=== PATIENT | female | born 1995 | race Caucasian/White ===

== ENCOUNTER 2017-03-19 16:56 | Emergency (ER) | payer OTHER, SELFPAY ==
[~2017-03-19] VITALS: Ht 149.9 cm; Wt 48.6 kg
[2017-03-19] MEDS ORDERED: ALBUTEROL SULFATE 2.5 MG/0.5 ML INH NEB SOLN NEB ONE (19:00)
[2017-03-19] MEDS ORDERED: methylPREDNISolone INJ 125 MG/2 ML VIAL (J2930) IV ONE (19:00)
[2017-03-19 19:11] LABS: BASO % 0.4 % (0.0-1.0); EOS # 0.3 10^3/uL (0.0-0.50); IMMATURE GRANULOCYTE % 0.4 % (0-0); LYMPH # 2.2 10^3/uL (1.5-6.5); LYMPH % 28.3 % (24.0-44.0); MEAN CORPUSCULAR HGB CONC 32.6 g/dl (32.0-36.5); MEAN CORPUSCULAR VOLUME 88.8 fl (80.0-96.0); MONO # 0.5 10^3/uL (0.0-0.8); MONO % 6.1 % (0.0-5.0); NEUTROPHILS # 4.7 10^3/uL (1.8-7.7); NEUTROPHILS % 60.8 % (36.0-66.0); PLATELET COUNT, AUTOMATED 300 10^3/uL (150-450); RED CELL DISTRIBUTION WIDTH 12.9 % (11.5-14.5); WHITE BLOOD COUNT 7.7 10^3/uL (4.0-10.0)
[2017-03-19 19:26] LABS: ANION GAP 6 MEQ/L (8-16); BLOOD UREA NITROGEN 15 MG/DL (7-18); CALCIUM LEVEL 9.3 MG/DL (8.5-10.1); CARBON DIOXIDE LEVEL 28 MEQ/L (21-32); CHLORIDE LEVEL 108 MEQ/L (98-107); GLOMERULAR FILTRATION RATE > 60.0 (>60); GLUCOSE, FASTING 88 MG/DL (70-105); POTASSIUM SERUM 4.2 MEQ/L (3.5-5.1); SODIUM LEVEL 142 MEQ/L (136-145)
--- NOTE | 2017-03-19 19:36 | REP ---
Chest x-ray: Two views. History: Shortness of breath . Comparison study: December 13, 2009 . Findings: The lungs are well inflated and free of infiltrate. The pleural angles are sharp. The heart size is normal. Pulmonary vasculature is not increased. No significant bony abnormality is seen. Impression: Negative chest x-ray. Signed by Boubacar Rey MD 03/19/2017 07:28 P
[2017-03-19] MEDS ORDERED: ALBUTEROL 90 MCG/ACT 8GM HFA INHALER INH ONE (20:30)
[2017-03-19 20:31] VITALS: BP 104/66
--- NOTE | 2017-03-20 09:19 | ECGEPIP ---
Stationary ECG Study [facility] - ED Test Date: 2017-03-19 Pat Name: MIRYAM DOZIER Department: Room: - Gender: F Job Hand: manisha : 1995 Requested By: Dusty Callaway Order Number: [id number] Reading MD: Brandy Arnold Measurements Intervals [place] Rate: 71 P: 67 [place]: 119 QRS: 36 QRSD: 72 T: 38 QT: 356 QTc: 388 Interpretive Statements SINUS RHYTHM WITH SHORT [place] INTERVAL NO PRIOR FOR COMPARISON Electronically Signed On 03-20-2017 9:19:18 EDT by Brandy Arnold
== END 2017-03-19 20:53 | disposition home or self-care (01) ==
LOC: M ED 16:56
DX: R06.02 Shortness of breath (principal); Z72.0 Tobacco use
CPT/HCPCS: 71020; 80048; 85025; 85379; 93005; 94640; 96374; 99284; J2930

== ENCOUNTER 2017-04-01 03:39 | Inpatient (IN) | payer SELFPAY ==
[~2017-04-01] VITALS: Ht 149.9 cm; Wt 48.6 kg
[2017-04-01 04:23] LABS: MEAN CORPUSCULAR HEMOGLOBIN 29.2 pg (27.0-33.0); MEAN CORPUSCULAR HGB CONC 34.1 g/dl (32.0-36.5); MEAN CORPUSCULAR VOLUME 85.4 fl (80.0-96.0); RED CELL DISTRIBUTION WIDTH 12.4 % (11.5-14.5); WHITE BLOOD COUNT 9.2 10^3/uL (4.0-10.0)
[2017-04-01 04:39] LABS: CONTROL LINE HCG INT CTR LINE PRESENT
[2017-04-01 04:44] LABS: METHADONE URINE NEGATIVE (NEGATIVE)
[2017-04-01 04:54] LABS: ALBUMIN 3.7 GM/DL (3.2-5.2); ALBUMIN/GLOBULIN RATIO 0.95 (1.00-1.93); ALKALINE PHOSPHATASE 63 U/L (45-117); ALT/SGPT 19 U/L (12-78); ANION GAP 11 MEQ/L (8-16); AST/SGOT 11 U/L (15-37); BILIRUBIN,DIRECT 0.1 MG/DL (0.0-0.2); BILIRUBIN,TOTAL 0.4 MG/DL (0.2-1.0); BLOOD UREA NITROGEN 7 MG/DL (7-18); CALCIUM LEVEL 8.8 MG/DL (8.5-10.1); CARBON DIOXIDE LEVEL 21 MEQ/L (21-32); CHLORIDE LEVEL 110 MEQ/L (98-107); GLOMERULAR FILTRATION RATE > 60.0 (>60); GLUCOSE, FASTING 79 MG/DL (70-105); SODIUM LEVEL 142 MEQ/L (136-145); TOTAL PROTEIN 7.6 GM/DL (6.4-8.2)
[2017-04-01] MEDS ORDERED: MOM 30ML SUSPENSION UDC PO PRN (11:15)
[2017-04-01] MEDS ORDERED: ACETAMINOPHEN TAB 650MG DOSE (2X325MG) PO PRN (11:15)
[2017-04-01] MEDS ORDERED: MAALOX 30 ML SUSP *UDC PO PRN (11:15)
[2017-04-01 12:45] VITALS: BP 107/57
[2017-04-01] MEDS: FLUoxetine 20 MG CAP PO SCH (14:13)
[2017-04-01] MEDS: NICOTINE 21MG/24HR 1 EA TRANSDERMAL TD SCH (14:56)
[2017-04-01 18:00] VITALS: BP 119/63
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
[2017-04-01] MEDS: traZODone 50 MG TAB PO PRN (21:03)
[2017-04-01] MEDS: AUGMENTIN 875 MG TAB PO SCH (23:09)
[2017-04-01] MEDS: LACTOBACILLUS ACIDOPHILUS CAP (BACID) PO SCH (23:09)
--- NOTE | 2017-04-02 04:05 | HPE ---
DATE OF ADMISSION: 04/01/2017 HISTORY OF PRESENT ILLNESS: Please refer to psychiatric history and evaluation for further details on this admission. This examination and history is intended for medical issues, which may need treatment, followup or consult on this 22-year-old female. ALLERGIES: No known allergies. PRIMARY CARE PROVIDER: None currently. SOCIAL HISTORY: She is single. She has a 6-year-old daughter. Ethyl alcohol (EtOH) once a month if that. Smokes one-half pack of cigarettes per day. Recreational drug use: None. PAST MEDICAL HISTORY: She was recently treated with asthmatic bronchitis. She still has a cough and wheezing. No retraction. PAST SURGICAL HISTORY: Negative. HOME MEDICATIONS: Negative. LABORATORY STUDIES: CBC normal. Sodium 142, potassium 3.0, chloride 110, CO2 21. EtOH was 0.199. REVIEW OF SYSTEMS: 10-system review was done. Patient was complaining of chest congestion and inability to expectorate. Acute exacerbation of chronic obstructive pulmonary disease (COPD), bronchitis, rule out pneumonia. PHYSICAL EXAMINATION: Vital signs stable. Patient is alert and oriented times three. Pupils equal and react to light. Extraocular muscles intact. Cornea and sclerae clear. Conjunctivae were normal. No facial asymmetry. Pharynx, tongue and gums pink and moist. Tongue is midline. Neck is supple without lymphadenopathy. No thyromegaly, no goiter. carotids 2+ without bruit. Chest decreased breath sounds, scattered expiratory wheeze, no retraction. Heart is regular. Abdomen is benign. Bowel sounds positive. Genitourinary/rectal: Not done. Extremities: No cyanosis, clubbing or edema. Peripheral pulses equal and palpable bilaterally. Skin is warm and dry. IMPRESSION/PLAN: 1. Acute exacerbation of chronic obstructive pulmonary disease (COPD). Probiotic one by mouth twice a day. Augmentin 875 by mouth twice a day times 10 days, take with food. Prednisone taper. Increase fluids by mouth. Sputum for culture and sensitivity (C and S). 2. Psychiatric plan per psychiatry.
[2017-04-02 06:32] VITALS: BP 104/59
[2017-04-02 07:06] LABS: ANION GAP 8 MEQ/L (8-16); BLOOD UREA NITROGEN 14 MG/DL (7-18); CALCIUM LEVEL 9.1 MG/DL (8.5-10.1); CARBON DIOXIDE LEVEL 23 MEQ/L (21-32); CHLORIDE LEVEL 107 MEQ/L (98-107); CREATININE FOR GFR 0.67 MG/DL (0.55-1.02); GLOMERULAR FILTRATION RATE > 60.0 (>60); GLUCOSE, FASTING 77 MG/DL (70-105); POTASSIUM SERUM 3.9 MEQ/L (3.5-5.1); SODIUM LEVEL 138 MEQ/L (136-145)
[2017-04-02] MEDS: FLUoxetine 20 MG CAP PO SCH (08:14)
[2017-04-02] MEDS: LACTOBACILLUS ACIDOPHILUS CAP (BACID) PO SCH ×2 (08:14→21:01)
[2017-04-02] MEDS: predniSONE 1 MG TAB PO SCH (08:14)
[2017-04-02] MEDS: NICOTINE 21MG/24HR 1 EA TRANSDERMAL TD SCH (08:14)
[2017-04-02] MEDS: AUGMENTIN 875 MG TAB PO SCH ×2 (08:14→21:02)
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
[2017-04-02 18:00] VITALS: BP 100/63
[2017-04-02] MEDS: traZODone 50 MG TAB PO PRN (21:02)
[2017-04-03 06:36] VITALS: BP 107/64
[2017-04-03] MEDS: LACTOBACILLUS ACIDOPHILUS CAP (BACID) PO SCH ×2 (08:46→20:35)
[2017-04-03] MEDS: AUGMENTIN 875 MG TAB PO SCH ×2 (08:46→20:35)
[2017-04-03] MEDS: FLUoxetine 20 MG CAP PO SCH (08:46)
[2017-04-03] MEDS: predniSONE 1 MG TAB PO SCH (08:47)
[2017-04-03] MEDS: NICOTINE 21MG/24HR 1 EA TRANSDERMAL TD SCH (08:47)
--- NOTE | 2017-04-03 12:09 | MHIPNPDOC ---
[facility] Progress Note Progress Note DATE OF SERVICE: 04/03/17 HISTORY: day 3 of admission for SI and depression requiring a change in medication. VITAL SIGNS: See below. NEW TEST RESULTS: na CURRENT MEDICATIONS: See below. MENTAL STATUS EXAMINATION: Patient is a 22-year old female, who is dark complexed, dressed in hospital garb , long dark hair, good eye contact, cooperative, petite in stature. Speech: Is spontaneous, clear. Language skills are good. Thought processes including: goal directed. Thought content: appropriate. Abstract reasoning, and computation: good. Description of associations: good. Description of abnormal or psychotic thoughts: no psychotic symptoms illicited. Pt denies current thoughts or intentions to harm self. Pt admits to thoughts of crashing her car due to her depression over the past month. Judgment: fair Insight: fair. Orientation: oriented x 4. Recent and remote memory: intact Attention span and concentration: good. Fund of knowledge:Full. Mood: depressed. Affect: congruent DIAGNOSIS: 1. Major depressive disorder, severe, recurrent, without psychotic symptoms. 2. Rule out panic disorder. ASSESSMENT:pt participated in treatment planning with the team today. She was well spoken and clearly identified her needs, her goals and her objectives. She is motivated to pursue outpatient treatment for her depressive symptoms and remain on medication. She was informed that 12-18 months of treatment is recommended for her. pt is looking at reducing stress in her life and ways she can make her life more manageable. Pt identifies her child as a protective factor agains the act of suicide. pt demonstrates an improvement in mood and is denying suicidal ideations. She had planned to be a support for her mother on for a surgical procedure. She would still like to do this. MANAGEMENT PLAN: we will plan on discharge tomorrow with referral to [facility] for Medication Mgt and Therapy. Continue meds and close observation. TIME SPENT: 25 minutes. Vital Signs Vital Signs Date Time Temp Pulse Resp B/P (MAP) Pulse Ox O2 Delivery O2 Flow Rate FiO2 04/03/17 06:36 96.2 70 16 107/64 (78) 04/02/17 09:52 Room Air 04/01/17 12:45 98 Current Medications Current Medications Acetaminophen (Tylenol Tab) 650 mg Q6HP PRN PO HEADACHE or DISCOMFORT Last administered on 04/01/17t 21:03; Start 04/01/17 at 11:15; Stop 05/01/17 at 11 :14 Al Hydrox/Mg Hydrox/Simethicone (Mylanta) 30 ml Q4HP PRN PO HEARTBURN/ INDIGESTION; Start 04/01/17 at 11:15; Stop 05/01/17 at 11:14 Amoxicillin/ Clavulanate Potassium (Augmentin) 875 mg BID PO Last administered on 04/03/17 08:46; Start 04/01/17 at 21:00; Stop 04/11/17 at 09:01 Fluoxetine HCl (PROzac) 20 mg QAM PO Last administered on 04/03/17 08:46; Start 04/01/17 at 09:00; Stop 05/01/17 at 08:59 Home Med (Med Rec Complete!) ASDIRECTED XX ; Start 04/01/17 at 04:30; Stop at 04:30; Status DC Lactobacillus Acidophilus (Bacid) 1 ea BID PO Last administered on 04/03/17 08:46; Start 04/01/17 at 21:00; Stop 05/01/17 at 20:59 Magnesium Hydroxide (Milk Of Magnesia) 30 ml DAILYPRN PRN PO CONSTIPATION; Start 04/01/17 at 11:15; Stop 05/01/17 at 11:14 Nicotine (Nicoderm Cq 21mg) 1 patch DAILY TD Last administered on 04/03/17 08 :47; Start 04/01/17 at 09:00; Stop 05/01/17 at 08:59 Prednisone (Deltasone) 0.5 mg DAILY PO ; Start 04/08/17 at 09:00; Stop at 09:01 Prednisone (Deltasone) 2 mg DAILY PO ; Start 04/05/17 at 09:00; Stop 04/07/17 at 09:01 Prednisone (Deltasone) 3 mg DAILY PO Last administered on 04/03/17 08:47; Start 04/02/17 at 09:00; Stop 04/04/17 at 09:01 Trazodone HCl (Desyrel) 50 mg QHSP PRN PO INSOMNIA Last administered on 21:02; Start 04/01/17 at 11:15; Stop 05/01/17 at 11:14 Allergies Coded Allergies: No Known Allergies (Verified , 04/01/17) Bindu Lowry Apr 03, 2017 12:09
[2017-04-03] MEDS ORDERED: hydrOXYzine 25 MG TAB PO PRN (15:30)
[2017-04-03 18:27] VITALS: BP 120/66
[2017-04-03] MEDS: traZODone 50 MG TAB PO PRN (20:36)
[2017-04-04 06:24] VITALS: BP 97/55
[2017-04-04] MEDS: FLUoxetine 20 MG CAP PO SCH (08:38)
[2017-04-04] MEDS: NICOTINE 21MG/24HR 1 EA TRANSDERMAL TD SCH (08:39)
[2017-04-04] MEDS: LACTOBACILLUS ACIDOPHILUS CAP (BACID) PO SCH (08:39)
[2017-04-04] MEDS: predniSONE 1 MG TAB PO SCH (08:40)
[2017-04-04] MEDS: AUGMENTIN 875 MG TAB PO SCH (08:40)
[2017-04-04] MEDS ORDERED: NICO21PAT TD (08:48)
[2017-04-04] MEDS ORDERED: FLUO20CA19 PO (08:48)
[2017-04-04] MEDS ORDERED: HYDR-3363 PO (08:48)
[2017-04-04] MEDS ORDERED: TRAZO50TA PO (09:46)
[2017-04-04] MEDS ORDERED: AMOX875T2 PO (09:46)
[2017-04-04] MEDS ORDERED: PRED1TABL PO (09:46)
--- NOTE | 2017-04-04 15:09 | MHDSPDOC ---
[facility] Discharge Summary Discharge Summary DATE OF ADMISSION: Apr 01, 2017 at 11:11 DATE OF DISCHARGE: Apr 04, 2017 at 10:45 DISCHARGE DIAGNOSES: 1. Major depressive disorder, severe, recurrent, without psychotic symptoms. 2. Rule out panic disorder. REASON FOR ADMISSION: pt was having suicidal thoughts and drove herself to our hospital. she was observed in her car by a security office, crying. She presented herself to the ED for a psychiatric evaluation because she was having suicidal thoughts and would never want to harm herself as she has a daughter. Pt also has a mother who is ill. She has numerous stressors and puts in many hours of work each week to support herself and her daughter. 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 She describes herself as the strong one that others come to talk to from her work. She is always trying to help people out. She is pleased when they have success but lately the demands have been making her feel drained". She is working 60-80 hours a week and has a small child at home. Pt cautioned about working to this extent and it affecting her mood and anxiety. Pt also having relationship problems. Pt does not have any help in raising her child but is close to her mother who lives nearby. Her mother has health issues and Vicki tries not to "burden her" with her worries. HOSPITAL COURSE: pts medications were changed straight away. She was started on Prozac since she does not have health insurance and no way to pay for outpatient meds. she never refilled prior prescriptions due to cost. At [facility] this SSRI is available at low cost, typically a 30 day supply will run $4. Pt complained of anxiety on the unit and this was addressed successfully with Atarax. She also had difficulty with insomnia which was relieved with Trazodone. She received medication education regarding risks and benefits with medication. Her questions were answered. She was referred to for assistance in applying for health insurance. Since it is available to her through her employer we were not able to direct her to medicaid services. DISCHARGE ASSESSMENT: pt was very accepting of referral for outpatient therapy. She will be referred to [facility] since they can offer her services on a sliding scale. She will see them for med mgt as well. Pt was able to identify positive coping skills she can use readily after discharge. Pt was not homicidal or suicidal when she left the inpatient unit. She got along well with her roommate and other peers. MENTAL STATUS EXAMINATION ON DISCHARGE: Patient is a 22-year old female, who is dark complexed, dressed in hospital garb , long dark hair, good eye contact, cooperative, petite in stature. Speech: Is spontaneous, clear. Language skills are good. Thought processes including: goal directed. Thought content: appropriate. Abstract reasoning, and computation: good. Description of associations: good. Description of abnormal or psychotic thoughts: no psychotic symptoms illicited. Pt denies current thoughts or intentions to harm self. Pt admits to thoughts of crashing her car due to her depression over the past month. Judgment: fair Insight: fair. Orientation: oriented x 4. Recent and remote memory: intact Attention span and concentration: good. Fund of knowledge:Full. Mood: depressed. Affect: congruent MEDICATIONS ON DISCHARGE: - Prozac for depression. - Hydroxyzine for anxiety - Trazodone for sleep PLAN/FOLLOWUP ARRANGEMENTS: [facility] for med mgt and individual therapy. The amount of time spent in the coordination of care for this patient was approximately 29 minutes. Vital Signs/I&Os Vital Signs Date Time Temp Pulse Resp B/P (MAP) Pulse Ox O2 Delivery O2 Flow Rate FiO2 04/04/17 06:24 97.5 72 18 97/55 (69) 04/02/17 09:52 Room Air 04/01/17 12:45 98 Laboratory Data Microbiology Microbiology 04/01/17 Gram Stain - Final, Resulted 04/01/17 Sputum Culture, Resulted Pending Medications Scheduled Amoxicillin/Clavulanate Potas (Amoxicillin/Clavulanate P 875-125 mg) 1 Tab Tab, 875 MG PO BID for infection for 7 Days, #14 Fluoxetine Hcl (Fluoxetine HCl) 20 Mg Cap, 20 MG PO QAM for DEPRESSION for 7 Days, #7 Nicotine (Nicotine Transdermal Syst) 21 Mg/24 Hr Dis, 1 PATCH TD DAILY for NICOTINE WITHDRAWAL for 7 Days, #7 remove patch prior to bedtime if experiencing vivid dreams. Prednisone (Prednisone) 1 Mg Tab, 2 MG PO DAILY for inflammation for 6 Days, # 7.5 take 2 mg x 3 days then take 0.5 mg x 3 days Scheduled PRN Hydroxyzine HCl (Hydroxyzine HCl) 25 Mg Tab, 25 MG PO Q6HP PRN for ANXIETY for 7 Days, #28 take as needed for anxiety up to 4 times daily. Trazodone HCl (Trazodone HCl) 50 Mg Tab, 50 MG PO QHSP PRN for INSOMNIA for 7 Days, #7 take one dose daily if needed for insomnia. Allow 9-10 hours for sleep. Allergies Coded Allergies: No Known Allergies (Verified , 04/01/17) Bindu Lowry Apr 04, 2017 15:09
[2017-04-05] MEDS ORDERED: predniSONE 1 MG TAB PO SCH (09:00)
[2017-04-08] MEDS ORDERED: predniSONE 1 MG TAB PO SCH (09:00)
== END 2017-04-04 10:45 | disposition home or self-care (01) | DRG 751 ==
LOC: M ED 03:39 → M ED INP 11:11 → M PSY 12:30
PROVIDERS: ADMIT Psychiatry & Neurology Psychiatry; ATTEND Psychiatry & Neurology Psychiatry
DX: F33.2 Major depressive disorder, recurrent severe without psychotic features (principal); J44.1 Chronic obstructive pulmonary disease with (acute) exacerbation; R45.851 Suicidal ideations; F41.0 Panic disorder [episodic paroxysmal anxiety]; F17.210 Nicotine dependence, cigarettes, uncomplicated; Z79.899 Other long term (current) drug therapy

== ENCOUNTER → 2017-06-02 | Outpatient (REF) | payer SELFPAY ==
[~2017-06-02] MED LIST: AMOX875T2 PO; FLUO20CA19 PO; HYDR-3363 PO; NICO21PAT TD; PRED1TABL PO; TRAZO50TA PO
== END ==
LOC: M LAB REF 21:35
PROVIDERS: ATTEND Physician Assistant
DX: J02.9 Acute pharyngitis, unspecified (principal)

== ENCOUNTER 2017-08-27 23:33 | Emergency (ER) | payer SELFPAY, OTHER ==
[2017-08-28] MEDS: PERCOCET 5MG/325MG TAB PO (00:59)
[2017-08-28] MEDS: ONDANSETRON 4 MG ORAL DISINTEGRATING TAB (S0181) PO (00:59)
[2017-08-28 01:10] LABS: BASO % 0.3 % (0.0-1.0); EOS # 0.2 10^3/uL (0.0-0.50); EOS % 3.4 % (0.0-3.0); HEMATOCRIT 37.4 % (36.0-47.0); IMMATURE GRANULOCYTE % 0.3 % (0-3.0); LYMPH # 1.5 10^3/uL (1.5-6.5); LYMPH % 22.5 % (24.0-44.0); MEAN CORPUSCULAR HEMOGLOBIN 27.7 pg (27.0-33.0); MEAN CORPUSCULAR HGB CONC 32.1 g/dl (32.0-36.5); MEAN CORPUSCULAR VOLUME 86.4 fl (80.0-96.0); MONO # 0.5 10^3/uL (0.0-0.8); MONO % 7.9 % (0.0-5.0); NEUTROPHILS # 4.5 10^3/uL (1.8-7.7); NEUTROPHILS % 65.6 % (36.0-66.0); PLATELET COUNT, AUTOMATED 289 10^3/uL (150-450); RED BLOOD COUNT 4.33 10^6/uL (4.00-5.40); WHITE BLOOD COUNT 6.8 10^3/uL (4.0-10.0)
[2017-08-28 01:15] LABS: APPEARANCE, URINE CLOUDY (CLEAR); BACTERIA, URINE AUTO NEGATIVE (NEGATIVE); BILIRUBIN, URINE AUTO NEGATIVE (NEGATIVE); BLOOD, URINE BLOOD 1+ (NEGATIVE); COLOR, URINE AMBER (YELLOW); GLUCOSE, URINE (UA) AUTO NEGATIVE (NEGATIVE); KETONE, URINE AUTO NEGATIVE (NEGATIVE); LEUKOCYTE ESTERASE, URINE AUTO TRACE (NEGATIVE); MUCUS, URINE SMALL (NEGATIVE); NITRITE, URINE AUTO NEGATIVE (NEGATIVE); PROTEIN, URINE AUTO NEGATIVE (NEGATIVE); RBC, URINE AUTO 7 /HPF (0-3); SPECIFIC GRAVITY URINE AUTO 1.017 (1.002-1.035); SQUAMOUS EPITHELIAL CELL UR AU 23 /HPF (0-6); WBC, URINE AUTO 7 /HPF (0-3)
[2017-08-28 01:40] LABS: ALBUMIN 3.3 GM/DL (3.2-5.2); ALBUMIN/GLOBULIN RATIO 0.92 (1.00-1.93); ALKALINE PHOSPHATASE 58 U/L (45-117); ALT/SGPT 13 U/L (12-78); AMYLASE 36 U/L (25-115); ANION GAP 5 MEQ/L (8-16); AST/SGOT 10 U/L (7-37); BILIRUBIN,DIRECT < 0.1 MG/DL (0.0-0.2); BILIRUBIN,TOTAL 0.3 MG/DL (0.2-1.0); BLOOD UREA NITROGEN 10 MG/DL (7-18); CALCIUM LEVEL 8.6 MG/DL (8.5-10.1); CARBON DIOXIDE LEVEL 29 MEQ/L (21-32); CHLORIDE LEVEL 109 MEQ/L (98-107); CREATININE FOR GFR 0.74 MG/DL (0.55-1.30); GLOMERULAR FILTRATION RATE > 60.0 (>60); GLUCOSE, FASTING 90 MG/DL (70-100); LIPASE 87 U/L (73-393); POTASSIUM SERUM 3.9 MEQ/L (3.5-5.1); SODIUM LEVEL 143 MEQ/L (136-145); TOTAL PROTEIN 6.9 GM/DL (6.4-8.2)
[2017-08-28] MEDS: OXYCODONE/APAP 5MG/325MG(BULK FOR ED) 1 TABLET PO (02:07)
== END 2017-08-28 02:08 | disposition home or self-care (01) ==
LOC: M ED 23:33
DX: K29.00 Acute gastritis without bleeding (principal); F41.9 Anxiety disorder, unspecified; M54.5 Low back pain; F17.200 Nicotine dependence, unspecified, uncomplicated; Z79.899 Other long term (current) drug therapy
CPT/HCPCS: 76705

== ENCOUNTER 2017-10-01 10:51 | Day surgery (SDC) | payer SELFPAY ==
[2017-10-01] MEDS ORDERED: PROPOFOL 500 MG/50 ML VIAL As Ordered (12:03)
[2017-10-01] MEDS: NS 1,000 ML IV (12:13)
[2017-10-01] MEDS ORDERED: LIDOCAINE 2% INJ 100 MG/5 ML SDV (FOR ANES.) As Ordered (12:50)
[2017-10-01] MEDS ORDERED: fentaNYL 100 MCG/2 ML INJECTION (J3010) As Ordered (12:51)
== END 2017-10-01 14:02 | disposition home or self-care (01) ==
LOC: M OPP 10:51
DX: K29.70 Gastritis, unspecified, without bleeding (principal); R11.10 Vomiting, unspecified; F41.9 Anxiety disorder, unspecified; F32.9 Major depressive disorder, single episode, unspecified; R51 Headache; F17.210 Nicotine dependence, cigarettes, uncomplicated; Z79.899 Other long term (current) drug therapy
CPT/HCPCS: 43239

== ENCOUNTER 2017-10-27 14:16 | Emergency (ER) | payer OTHER, SELFPAY ==
[2017-10-27] MEDS: ACETAMINOPHEN TAB 650MG DOSE (2X325MG) PO (15:09)
== END 2017-10-27 16:26 | disposition home or self-care (01) ==
LOC: M ED 14:16
DX: S09.90XA Unspecified injury of head, initial encounter (principal); S83.92XA Sprain of unspecified site of left knee, initial encounter; V43.52XA Car driver injured in collision with other type car in traffic accident, initial encounter; Y92.410 Unspecified street and highway as the place of occurrence of the external cause; Y93.9 Activity, unspecified; Y99.9 Unspecified external cause status; F17.200 Nicotine dependence, unspecified, uncomplicated
CPT/HCPCS: 73552

== ENCOUNTER 2018-05-27 22:48 | Emergency (ER) | payer SELFPAY, OTHER ==
[2018-05-27] MEDS: diazePAM 10 MG TAB PO (23:26)
[2018-05-27] MEDS: KETOROLAC 60 MG/2 ML VIAL (J1885) IM (23:26)
== END 2018-05-28 00:17 | disposition home or self-care (01) ==
LOC: M ED 05-28 00:17
DX: M54.5 Low back pain (principal)
CPT/HCPCS: J1885

== ENCOUNTER 2020-03-03 14:26 | Emergency (ER) | payer BC, SELFPAY ==
[~2020-03-03] VITALS: Ht 147.3 cm; Wt 54.5 kg
[~2020-03-03 14:26] MED LIST changes: +CYCL-707 PO; -FLUO20CA19 PO; +FLUO20CA22 PO; +IBUP-1022 PO; +PRIL20CA9 PO; +SIME80TA12 PO; +TRAZ1TAB10 PO; -TRAZO50TA PO; +ZOFR4TAB14 PO
[2020-03-03] MEDS ORDERED: ACET-683 PO (14:40)
[2020-03-03 15:36] LABS: BASO % 0.2 % (0.0-1.0); EOS # 0.2 10^3/uL (0.0-0.5); EOS % 1.9 % (0.0-3.0); HEMATOCRIT 34.6 % (36.0-47.0); HEMOGLOBIN 11.4 g/dl (12.0-15.5); LYMPH # 2.1 10^3/uL (1.5-5.0); LYMPH % 23.3 % (24.0-44.0); MEAN CORPUSCULAR HEMOGLOBIN 29.2 pg (27.0-33.0); MEAN CORPUSCULAR HGB CONC 32.9 g/dl (32.0-36.5); MEAN CORPUSCULAR VOLUME 88.7 fl (80.0-96.0); MONO # 0.6 10^3/uL (0.0-0.8); MONO % 6.2 % (0.0-5.0); NEUTROPHILS # 6.2 10^3/uL (1.5-8.5); NEUTROPHILS % 68.1 % (36.0-66.0); PLATELET COUNT, AUTOMATED 273 10^3/uL (150-450); WHITE BLOOD COUNT 9.1 10^3/uL (4.0-10.0)
[2020-03-03] MEDS ORDERED: NS 1,000 ML IV ONE (15:45)
[2020-03-03] MEDS ORDERED: KETOROLAC 30 MG/ML 1ML VIAL IV ONE (15:45)
[2020-03-03 16:02] LABS: ALBUMIN 3.4 GM/DL (3.2-5.2); ALT/SGPT 16 U/L (12-78); BILIRUBIN,DIRECT < 0.1 MG/DL (0.0-0.2); BILIRUBIN,TOTAL 0.3 MG/DL (0.2-1.0); BLOOD UREA NITROGEN 12 MG/DL (7-18); CALCIUM LEVEL 8.8 MG/DL (8.5-10.1); CARBON DIOXIDE LEVEL 25 MEQ/L (21-32); CHLORIDE LEVEL 107 MEQ/L (98-107); CREATININE FOR GFR 0.81 MG/DL (0.55-1.30); GLOMERULAR FILTRATION RATE > 60.0 (>60); GLUCOSE, FASTING 76 MG/DL (70-100); LIPASE 90 U/L (73-393); POTASSIUM SERUM 3.7 MEQ/L (3.5-5.1); SODIUM LEVEL 138 MEQ/L (136-145); TOTAL PROTEIN 6.9 GM/DL (6.4-8.2)
[2020-03-03] MEDS ORDERED: ISOVUE-370 76% 100ML VIAL As Ordered ONE (16:14)
--- NOTE | 2020-03-03 16:44 | REPVR ---
PROCEDURE INFORMATION: Exam: CT Abdomen And Pelvis With Contrast Exam date and time: 03/03/2020 4:22 PM Age: 25 years old Clinical indication: Abdominal pain; Localized; Left; Additional info: Luq/llq pain TECHNIQUE: Imaging protocol: Computed tomography of the abdomen and pelvis with intravenous contrast. Radiation optimization: All CT scans at this facility use at least one of these dose optimization techniques: automated exposure control; mA and/or kV adjustment per patient size (includes targeted exams where dose is matched to clinical indication); or iterative reconstruction. Contrast material: ISOVUE 370; Contrast volume: 100 ml; Contrast route: INTRAVENOUS (IV); COMPARISON: CT Abdomen without contrast 02/26/2014 8:41 AM FINDINGS: Liver: 3.5 mm low-density lesion right lobe of the liver. Gallbladder and bile ducts: Normal. No calcified stones. No ductal dilation. Pancreas: Normal. No ductal dilation. Spleen: Normal. No splenomegaly. Adrenals: Normal. No mass. Kidneys and ureters: 4.4 mm calcification mid left kidney. No hydronephrosis in either kidney. Distal left ureter not well seen. 1.4 mm calcification in the region of the left ureterovesicular junction. Stomach and bowel: Moderate to large amount of stool in the ascending transverse and proximal descending colon. . No mucosal thickening. Appendix: No evidence of appendicitis. Intraperitoneal space: Small amount of free fluid in the posterior cul-de-sac. Vasculature: Unremarkable. No abdominal aortic aneurysm. Lymph nodes: Unremarkable. No enlarged lymph nodes. Bladder: Unremarkable as visualized. Reproductive: Small amount of fluid surrounds the right ovary. A rim enhancing 1.4 cm follicle in the right ovary suggests a collapsed cyst. Bones/joints: Sacralization and zhane sacralization (left and right respectively) of the L5 vertebral body . Soft tissues: Unremarkable. IMPRESSION: 1. Nonobstructing calcification in the left kidney 2. 1.4 mm calcification in the region of the left ureterovesicular junction. Distal left ureter not well seen. The 1.4 mm calcification could represent a phlebolith or a ureteral stone. Electronically signed by: Mary Faustin On 03/03/2020 16:44:02 PM
--- NOTE | 2020-03-03 18:05 | REPVR ---
PROCEDURE INFORMATION: Exam: US Nonobstetric Pelvis; Complete Exam date and time: 03/03/2020 5:33 PM Age: 25 years old Clinical indication: Pelvic pain; Additional info: Further eval R ovary TECHNIQUE: Imaging protocol: Transabdominal pelvic nonobstetric ultrasound. Complete exam. Real time ultrasound with image documentation. COMPARISON: CT ABD/PEL W/IV CONTRAST ONLY 03/03/2020 4:16 PM FINDINGS: Uterus/cervix: The uterus measures 7.7 x 4.3 by 6.1 cm. The endometrial stripe measures 0.94 cm in thickness. Nabothian cyst present within the cervix. Right adnexa: Right ovary measures 2.7 x 3.9 by 2.2 cm and contains a collapsed follicle measuring 2.2 cm in maximum diameter. Left adnexa: Left ovary measures 1.9 x 3.1 x 1.6 cm. Intraperitoneal space: Trace amount of free fluid in the posterior cul-de-sac. Bladder: The bladder measures 9.4 x 6.7 x 4.3 cm. Other findings: Blood flow demonstrated in both ovaries on color Doppler examination. IMPRESSION: 1. Normal pelvic ultrasound for a menstruating female. 2. Collapsed follicle in the right ovary corresponds to similar finding on CT scan. No suspicious features noted Electronically signed by: Mary Faustin On 03/03/2020 18:05:14 PM
[2020-03-03 18:27] VITALS: BP 107/64
== END 2020-03-03 18:51 | disposition home or self-care (01) ==
LOC: M ED 14:26
DX: N23 Unspecified renal colic (principal); N20.2 Calculus of kidney with calculus of ureter; K59.00 Constipation, unspecified; F17.200 Nicotine dependence, unspecified, uncomplicated
CPT/HCPCS: 74177; 76856; 80048; 80076; 83690; 84702; 85025; 93976; 96361; 96374; 99284; J1885; Q9967

== ENCOUNTER 2020-04-19 13:04 | Emergency (ER) | payer BC ==
[~2020-04-19] VITALS: Ht 149.9 cm; Wt 54.3 kg
[~2020-04-19 13:04] MED LIST changes: +ACET-683 PO
[2020-04-19] MEDS ORDERED: ALLE60TA69 PO (13:12)
[2020-04-19] MEDS ORDERED: IBUP-1114 PO (13:12)
[2020-04-19] MEDS ORDERED: KETOROLAC TROMETHAMINE 10 MG TAB PO ONE (13:45)
--- NOTE | 2020-04-19 14:10 | REP ---
INDICATION: injured/pain. COMPARISON: Chest 03/19/2017 TECHNIQUE: PA chest with 3 bilateral rib views. FINDINGS: PA chest: The lung spencer are well inflated. No effusion, infiltrate atelectasis or mass. No pneumothorax or pneumomediastinum. The heart, mediastinal hilar contours are normal. The aorta and airway are intact. There is mild levoconvex curve of the upper thoracic spine centered at T3. Bilateral ribs: Medial clavicles visualized scapular and humeral heads were unremarkable the ribs show posterior articulations normal and no visible or displaced rib fracture. Incidentally noted is a 5 mm calcification projecting over the lower pole of the left kidney. IMPRESSION: 1. Spine without acute finding, minor levoconvex curve centered at T3. 2. PA chest showed no acute findings of the heart or lungs. 3. Incidental note of a 5 mm calcification overlying lower pole of the kidney. This could be a small renal stone or in other organ. 4. No evidence of rib fracture, focal rib lesion, pleural effusion or pneumothorax. <Electronically signed by Lazaro Carrillo > 04/19/20 [id number]
[2020-04-19 15:35] VITALS: BP 115/64
== END 2020-04-19 15:46 | disposition home or self-care (01) ==
LOC: M ED 13:04
DX: S20.214A Contusion of middle front wall of thorax, initial encounter (principal); W52.XXXA Crushed, pushed or stepped on by crowd or human stampede, initial encounter; Y92.89 Other specified places as the place of occurrence of the external cause; F41.9 Anxiety disorder, unspecified; Z79.899 Other long term (current) drug therapy; F17.210 Nicotine dependence, cigarettes, uncomplicated

== ENCOUNTER → 2020-06-04 | Outpatient (REF) | payer SELFPAY ==
[~2020-06-04] MED LIST changes: +ALLE60TA69 PO; +IBUP-1114 PO
== END ==
LOC: EDSTATUS 13:40 → M LABSMTC 13:43
PROVIDERS: ATTEND Pediatrics
DX: Z20.828 Contact with and (suspected) exposure to other viral communicable diseases (principal)

== ENCOUNTER 2020-09-26 14:14 | Emergency (ER) | payer BC ==
[~2020-09-26] VITALS: Ht 149.9 cm; Wt 55.3 kg
[2020-09-26] MEDS ORDERED: SERT25TA85 PO (14:21)
[2020-09-26] MEDS ORDERED: ACET-683 PO (15:49)
[2020-09-26] MEDS ORDERED: CYCL5TAB PO (15:49)
[2020-09-26 16:06] VITALS: BP 121/78
--- NOTE | 2020-09-26 16:19 | ECGEPIP ---
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
== END 2020-09-26 16:08 | disposition home or self-care (01) ==
LOC: M ED 14:14
DX: M54.2 Cervicalgia (principal); R07.9 Chest pain, unspecified; M79.601 Pain in right arm; F33.9 Major depressive disorder, recurrent, unspecified; F41.9 Anxiety disorder, unspecified; K59.09 Other constipation; Z79.899 Other long term (current) drug therapy

== ENCOUNTER → 2020-09-27 | Outpatient (CLI) | payer BC ==
[~2020-09-27] MED LIST changes: +CYCL5TAB PO; +SERT25TA85 PO
--- NOTE | 2020-09-27 15:49 | REP ---
INDICATION: PAIN. COMPARISON: None. TECHNIQUE: Plain film study of the cervical spine includes AP lateral and odontoid views. FINDINGS: No evidence of fracture or malalignment. Vertebral heights and disc heights are preserved. There is mild straightening of the cervical spine. Prevertebral soft tissues are within normal limits. Only minimal degenerative changes are noted. IMPRESSION: No acute findings. Only minimal degenerative changes. If symptoms persist, consider MRI for further evaluation. <Electronically signed by Anupam Hilario > 09/27/20 [id number]
[2020-09-27 17:18] LABS: BASO % 0.6 % (0.0-1.0); EOS # 0.2 10^3/uL (0.0-0.5); EOS % 2.7 % (0.0-3.0); HEMATOCRIT 41.8 % (36.0-47.0); HEMOGLOBIN 13.4 g/dl (12.0-15.5); LYMPH # 2.1 10^3/uL (1.5-5.0); LYMPH % 31.8 % (24.0-44.0); MEAN CORPUSCULAR HEMOGLOBIN 28.7 pg (27.0-33.0); MEAN CORPUSCULAR HGB CONC 32.1 g/dl (32.0-36.5); MEAN CORPUSCULAR VOLUME 89.5 fl (80.0-96.0); MONO # 0.6 10^3/uL (0.0-0.8); MONO % 9.1 % (2.0-8.0); NEUTROPHILS # 3.7 10^3/uL (1.5-8.5); NEUTROPHILS % 55.5 % (36.0-66.0); PLATELET COUNT, AUTOMATED 334 10^3/uL (150-450); RED BLOOD COUNT 4.67 10^6/uL (4.00-5.40); WHITE BLOOD COUNT 6.7 10^3/uL (4.0-10.0)
[2020-09-27 17:54] LABS: ALBUMIN 3.8 GM/DL (3.2-5.2); ALT/SGPT 17 U/L (12-78); BILIRUBIN,TOTAL 0.3 MG/DL (0.2-1.0); BLOOD UREA NITROGEN 12 MG/DL (7-18); CALCIUM LEVEL 9.8 MG/DL (8.5-10.1); CARBON DIOXIDE LEVEL 28 MEQ/L (21-32); CHLORIDE LEVEL 107 MEQ/L (98-107); CREATININE FOR GFR 0.69 MG/DL (0.55-1.30); GLOMERULAR FILTRATION RATE > 60.0 (>60); GLUCOSE, FASTING 65 MG/DL (70-100); POTASSIUM SERUM 4.7 MEQ/L (3.5-5.1); SODIUM LEVEL 139 MEQ/L (136-145); THYROID STIMULATING HORMONE 0.574 uIU/ML (0.358-3.740); TOTAL PROTEIN 7.5 GM/DL (6.4-8.2)
--- NOTE | 2020-09-28 09:30 | REP ---
INDICATION: PAIN COMPARISON: None. TECHNIQUE: Internal rotation, external rotation, and Y view. FINDINGS: No acute fracture or dislocation. The acromioclavicular and glenohumeral joints are intact. No periarticular calcifications or degenerative changes are appreciated. Sub acromial space is normal. Surrounding soft tissues are unremarkable. IMPRESSION: Normal age-appropriate right shoulder radiographs. <Electronically signed by Huber Unger > 09/28/20 [id number]
== END ==
LOC: M WUC 14:55
PROVIDERS: ATTEND Physician Assistant
DX: M54.2 Cervicalgia (principal); M25.511 Pain in right shoulder

== ENCOUNTER → 2020-12-29 | Outpatient (CLI) | payer BC ==
[~2020-12-29] MED LIST changes: +ALLE180T33 PO; +LAMI1TAB7 PO; +PANT20TA6 PO
== END ==
LOC: M LABSMTC 12:22
PROVIDERS: ATTEND Anesthesiology
DX: Z01.812 Encounter for preprocedural laboratory examination (principal)

== ENCOUNTER 2020-12-31 10:59 | Day surgery (SDC) | payer BC ==
[~2020-12-31] VITALS: Ht 149.9 cm; Wt 53.0 kg
[~2020-12-31 10:59] MED LIST changes: +LIDOCAINE 2% 100MG/5ML SDV (FOR ANES.) As Ordered ONE; +NS 1,000 ML IV ONE; +propofoL 200 MG/20 ML VIAL As Ordered ONE
[2020-12-31] MEDS ORDERED: fentaNYL 100 MCG/2 ML INJECTION (J3010) As Ordered ONE (11:52)
[2020-12-31] MEDS ORDERED: LIDOCAINE 2% 100MG/5ML SDV (FOR ANES.) As Ordered ONE (11:57)
--- NOTE | 2020-12-31 12:50 | ROOR ---
Patient Name: Vicki Kenney Procedure Date: 12/31/2020 11:56 AM Date of : 1995 Age: 25 Room: [facility] Gender: Female Note Status: Finalized Procedure: Upper GI endoscopy Indications: Unexplained iron deficiency anemia, Dyspepsia Providers: Messi Souza MD Referring MD: BENJAMIN Irvin Requesting Provider: Medicines: Monitored Anesthesia Care Complications: No immediate complications. Procedure: Pre-Anesthesia Assessment: - Prior to the procedure, a History and Physical was performed, and patient medications and allergies were reviewed. The patient is competent. The risks and benefits of the procedure and the sedation options and risks were discussed with the patient. All questions were answered and informed consent was obtained. Patient identification and proposed procedure were verified by the physician, the nurse and the anesthesiologist in the procedure room. Mental Status Examination: alert and oriented. Airway Examination: normal oropharyngeal airway and neck mobility. Respiratory Examination: clear to auscultation. CV Examination: normal. Prophylactic Antibiotics: The patient does not require prophylactic antibiotics. Prior Anticoagulants: The patient has taken no previous anticoagulant or antiplatelet agents. ASA Grade Assessment: II - A patient with mild systemic disease. After reviewing the risks and benefits, the patient was deemed in satisfactory condition to undergo the procedure. The anesthesia plan was to use monitored anesthesia care (MAC). Immediately prior to administration of medications, the patient was re-assessed for adequacy to receive sedatives. The heart rate, respiratory rate, oxygen saturations, blood pressure, adequacy of pulmonary ventilation, and response to care were monitored throughout the procedure. The physical status of the patient was re-assessed after the procedure. The Endoscope was introduced through the mouth, and advanced to the second part of duodenum. The upper GI endoscopy was accomplished without difficulty. The patient tolerated the procedure well. Findings: The examined esophagus was normal. Scattered moderate inflammation characterized by erosions, erythema, friability and granularity was found in the gastric antrum. Biopsies were taken with a cold forceps for Helicobacter pylori testing. Verification of patient identification for the specimen was done by the physician and nurse using the patient's name, date and medical record number. Estimated blood loss was minimal. The duodenal bulb and second portion of the duodenum were normal. Impression: - Normal esophagus. - Gastritis. Biopsied. - Normal duodenal bulb and second portion of the duodenum. Recommendation: - Patient has a contact number available for emergencies. The signs and symptoms of potential delayed complications were discussed with the patient. Return to normal activities tomorrow. Written discharge instructions were provided to the patient. - High fiber diet. - Continue present medications. - Await pathology results. - Return to GI clinic in [facility] (address [address], [address], [place] [address]) in 4 -- 6 weeks. Please call GI clinic @ [phone] for apppointment date and time. - Follow an antireflux regimen. - Return to primary care physician. Procedure Code(s): --- Professional --- 60656, Esophagogastroduodenoscopy, flexible, transoral; with biopsy, single or multiple Diagnosis Code(s): --- Professional --- K29.70, Gastritis, unspecified, without bleeding D50.9, Iron deficiency anemia, unspecified R10.13, Epigastric pain CPT copyright 2019 [employer]. All rights reserved. The codes documented in this report are preliminary and upon post framer review may be revised to meet current compliance requirements. Messi Souza MD Messi Souza MD 12/31/2020 12:50:32 PM Electronically signed by Messi Souza MD Number of Addenda: 0 Note Initiated On: 12/31/2020 11:56 AM Estimated Blood Loss: Estimated blood loss was minimal.
--- NOTE | 2020-12-31 12:53 | ROOR ---
Patient Name: Vicki Kenney Procedure Date: 12/31/2020 11:57 AM Date of : 1995 Age: 25 Room: [facility] Gender: Female Note Status: Finalized Procedure: Colonoscopy Indications: Unexplained iron deficiency anemia Providers: Messi Souza MD Referring MD: BENJAMIN Irvin Requesting Provider: Medicines: Monitored Anesthesia Care Complications: No immediate complications. Procedure: Pre-Anesthesia Assessment: - Prior to the procedure, a History and Physical was performed, and patient medications and allergies were reviewed. The patient is competent. The risks and benefits of the procedure and the sedation options and risks were discussed with the patient. All questions were answered and informed consent was obtained. Patient identification and proposed procedure were verified by the physician, the nurse and the anesthesiologist in the procedure room. Mental Status Examination: alert and oriented. Airway Examination: normal oropharyngeal airway and neck mobility. Respiratory Examination: clear to auscultation. Prophylactic Antibiotics: The patient does not require prophylactic antibiotics. Prior Anticoagulants: The patient has taken no previous anticoagulant or antiplatelet agents. ASA Grade Assessment: II - A patient with mild systemic disease. After reviewing the risks and benefits, the patient was deemed in satisfactory condition to undergo the procedure. The anesthesia plan was to use monitored anesthesia care (MAC). Immediately prior to administration of medications, the patient was re-assessed for adequacy to receive sedatives. The heart rate, respiratory rate, oxygen saturations, blood pressure, adequacy of pulmonary ventilation, and response to care were monitored throughout the procedure. The physical status of the patient was re-assessed after the procedure. The Colonoscope was introduced through the anus and advanced to the terminal ileum, with identification of the appendiceal orifice and IC valve. The colonoscopy was performed without difficulty. The patient tolerated the procedure well. The quality of the bowel preparation was good. The terminal ileum, ileocecal valve, appendiceal orifice, and rectum were photographed. Scope insertion time was 2 minutes. Scope withdrawal time was 8 minutes. The total duration of the procedure was 12 minutes. Findings: The perianal and digital rectal examinations were normal. Scattered inflammation, mild in severity and characterized by erosions, friability and granularity was found in the terminal ileum. Biopsies were taken with a cold forceps for histology. Verification of patient identification for the specimen was done by the physician and nurse using the patient's name, date and medical record number. Estimated blood loss was minimal. Patchy mild inflammation characterized by altered vascularity, erythema and granularity was found in the recto-sigmoid colon, in the transverse colon and in the ascending colon. Biopsies were taken with a cold forceps for histology. Non-bleeding external and internal hemorrhoids were found during retroflexion. The hemorrhoids were small. Impression: - Ileitis. Biopsied. - Patchy mild inflammation was found in the recto-sigmoid colon, in the transverse colon and in the ascending colon secondary to colitis. Biopsied. - Non-bleeding external and internal hemorrhoids. Recommendation: - Patient has a contact number available for emergencies. The signs and symptoms of potential delayed complications were discussed with the patient. Return to normal activities tomorrow. Written discharge instructions were provided to the patient. - High fiber diet. - Continue present medications. - Await pathology results. - Repeat colonoscopy in 3 - 5 years to evaluate the response to therapy and for surveillance based on pathology results. - Return to GI clinic in [facility] (address [address], [address], [place] [address]) in 4 -- 6 weeks. Please call GI clinic @ [phone] for apppointment date and time. - Return to primary care physician. Procedure Code(s): --- Professional --- 76645, Colonoscopy, flexible; with biopsy, single or multiple Diagnosis Code(s): --- Professional --- K52.9, Noninfective gastroenteritis and colitis, unspecified K64.8, Other hemorrhoids D50.9, Iron deficiency anemia, unspecified CPT copyright 2019 [employer]. All rights reserved. The codes documented in this report are preliminary and upon financial planner review may be revised to meet current compliance requirements. Messi Souza MD Messi Souza MD 12/31/2020 12:53:21 PM Electronically signed by Messi Souza MD Number of Addenda: 0 Note Initiated On: 12/31/2020 11:57 AM Estimated Blood Loss: Estimated blood loss was minimal.
[2020-12-31 13:05] VITALS: BP 115/75
== END 2020-12-31 13:24 | disposition home or self-care (01) ==
LOC: M OPP 10:59
PROVIDERS: ATTEND Internal Medicine Gastroenterology
DX: K52.9 Noninfective gastroenteritis and colitis, unspecified (principal); K64.8 Other hemorrhoids; D50.9 Iron deficiency anemia, unspecified; K29.70 Gastritis, unspecified, without bleeding; Z79.899 Other long term (current) drug therapy; F17.210 Nicotine dependence, cigarettes, uncomplicated; B96.81 Helicobacter pylori [H. pylori] as the cause of diseases classified elsewhere; Z83.79 Family history of other diseases of the digestive system
CPT/HCPCS: 43239; 45380; 88305; J3010

== ENCOUNTER → 2021-04-14 | Outpatient (CLI) | payer BC ==
[~2021-04-14] MED LIST changes: -LIDOCAINE 2% 100MG/5ML SDV (FOR ANES.) As Ordered ONE; -NS 1,000 ML IV ONE; -propofoL 200 MG/20 ML VIAL As Ordered ONE
--- NOTE | 2021-04-14 13:11 | REP ---
INDICATION: MENORRHAGIA WITH REGULAR CYCLE, FIBROID OF CERVIX. COMPARISON: 03/28/2012. TECHNIQUE: Transabdominal and transvaginal scanning performed. FINDINGS: Uterine dimensions are 7.0 x 3.8 x 5.4 cm. Endometrial echo is 4 mm in AP dimension and centrally placed. There are complex nabothian cysts, the largest 1.2 x 0.7 x 1.0 cm. The bladder measures 3.5 x 6.2 x 7.9cm. The right ovary has dimensions of 4.0 x 1.5 x 2.3 cm. It's Doppler flow is normal with a resistive index of 0.41. The left ovary dimensions are 3.5 x 1.4 x 1.5 cm. It's Doppler flow was normal with resistive index of 0.57. There is no adnexal mass identified. No free fluid is seen in the cul-de-sac. IMPRESSION: Complex nabothian cysts in the cervix, otherwise negative pelvic ultrasound. <Electronically signed by Osbaldo Miranda > 04/14/21 [id number]
== END ==
LOC: M WHC 07:08
PROVIDERS: ATTEND Advanced Practice Midwife
DX: N92.0 Excessive and frequent menstruation with regular cycle (principal); D28.0 Benign neoplasm of vulva; N88.8 Other specified noninflammatory disorders of cervix uteri

== ENCOUNTER → 2022-02-06 | Outpatient (CLI) | payer BC | LOC: M PLAIMG 15:51 | PROVIDERS: ATTEND Physician Assistant | DX: M25.531 Pain in right wrist (principal) ==

== ENCOUNTER → 2022-05-25 | Outpatient (CLI) | payer OTHER ==
[2022-05-25 11:10] LABS: HEMATOCRIT 39.6 % (36.0-47.0); HEMOGLOBIN 12.4 g/dl (12.0-15.5); MEAN CORPUSCULAR HEMOGLOBIN 27.9 pg (27.0-33.0); MEAN CORPUSCULAR HGB CONC 31.3 g/dl (32.0-36.5); PLATELET COUNT, AUTOMATED 299 10^3/uL (150-450); RED BLOOD COUNT 4.45 10^6/uL (4.00-5.40); WHITE BLOOD COUNT 6.1 10^3/uL (4.0-10.0)
[2022-05-25 11:25] LABS: BLOOD UREA NITROGEN 12 MG/DL (9-23); CARBON DIOXIDE LEVEL 29 MMOL/L (20-31); CHLORIDE LEVEL 108 MMOL/L (98-107); CHOLESTEROL LEVEL 169 MG/DL (<200); CHOLESTEROL RISK RATIO 2.73 (<5); CREATININE FOR GFR 0.77 MG/DL (0.55-1.30); GLOMERULAR FILTRATION RATE > 60.0 (>60); GLUCOSE, FASTING 81 MG/DL (60-100); HDL CHOLESTEROL 61.8 MG/DL (>40); LDL CHOLESTEROL 96.8 MG/DL (<100); NON-HDL-C 107 MG/DL; POTASSIUM SERUM 4.6 MMOL/L (3.5-5.1); SODIUM LEVEL 139 MMOL/L (136-145); TRIGLYCERIDES LEVEL 52 MG/DL (<150)
== END ==
LOC: M LAB 10:16
PROVIDERS: ATTEND Physician Assistant
DX: Z13.1 Encounter for screening for diabetes mellitus (principal); R06.09 Other forms of dyspnea; Z13.220 Encounter for screening for lipoid disorders

== ENCOUNTER → 2022-07-06 | Outpatient (REF) | payer OTHER | LOC: M LAB REF 16:20 | PROVIDERS: ATTEND Physician Assistant | DX: Z12.4 Encounter for screening for malignant neoplasm of cervix (principal); Z11.3 Encounter for screening for infections with a predominantly sexual mode of transmission; Z01.419 Encounter for gynecological examination (general) (routine) without abnormal findings ==

== ENCOUNTER → 2022-08-21 | Outpatient (CLI) | payer OTHER | LOC: M RAD 09:27 | PROVIDERS: ATTEND Nurse Practitioner Family | DX: M25.512 Pain in left shoulder (principal); M54.32 Sciatica, left side ==

== ENCOUNTER → 2022-10-04 | Outpatient (CLI) | payer OTHER | LOC: M EKG 09:22 | PROVIDERS: ATTEND Physician Assistant | DX: R00.0 Tachycardia, unspecified (principal); R06.00 Dyspnea, unspecified; R07.9 Chest pain, unspecified ==

== ENCOUNTER → 2023-05-18 | Outpatient (CLI) | payer OTHER | LOC: M WHC 13:47 | PROVIDERS: ATTEND Physician Assistant | DX: E04.1 Nontoxic single thyroid nodule (principal) ==

== ENCOUNTER → 2023-10-30 | Outpatient (CLI) | payer OTHER | LOC: M WUC 09:46 | PROVIDERS: ATTEND Nurse Practitioner Family | DX: M25.512 Pain in left shoulder (principal); M54.50 Low back pain, unspecified; S67.21XA Crushing injury of right hand, initial encounter; Y93.9 Activity, unspecified; Y92.9 Unspecified place or not applicable ==